=== PATIENT | male | born 1980 | race Caucasian/White ===

== ENCOUNTER 2018-02-22 14:52 | Emergency (ER) | payer BC ==
[2018-02-22] MEDS ORDERED: Sodium Chloride 0.9% 1,000 ML IV STA (15:16)
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
[2018-02-22 15:46] LABS: BASO # 0.1 K/uL (0.0-0.2); BASO % 0.9 % (0.0-2.0); EOS # 0.1 K/uL (0.0-0.7); EOS % 0.7 % (0.0-4.0); HEMOGLOBIN 17.7 g/dL (12.0-18.0); LYMPH # 2.6 K/uL (1.0-4.3); LYMPH % 25.1 % (20.0-40.0); MEAN CELL VOLUME 90.7 fl (80.0-94.0); MEAN CORPUSCULAR HEMOGLOBIN 29.7 pg (27.0-31.0); MEAN CORPUSCULAR HGB CONC 32.8 g/dL (33.0-37.0); MEAN PLATELET VOLUME 9.2 fl (7.2-11.7); MONO # 0.8 K/uL (0.0-0.8); MONO % 7.6 % (0.0-10.0); NEUT # 6.8 K/uL (1.8-7.0); NEUT % 65.7 % (50.0-75.0); RBC 5.95 Mil/uL (4.40-5.90); RED CELL DISTRIBUTION WIDTH 13.7 % (11.5-14.5); WHITE BLOOD COUNT 10.4 K/uL (4.8-10.8)
[2018-02-22 15:57] LABS: PROTHROMBIN TIME 11.2 Seconds (9.8-13.1)
[2018-02-22 15:59] LABS: PARTIAL THROMBOPLASTIN TIME 30.3 Seconds (25.6-37.1)
[2018-02-22 16:09] LABS: ALB/GLOB RATIO 1.3 (1.0-2.1); ALBUMIN 4.7 g/dL (3.5-5.0); ALT/SGPT 58 U/L (21-72); AST/SGOT 54 U/L (17-59); BLOOD UREA NITROGEN 19 mg/dl (9-20); CALCIUM 10.1 mg/dL (8.4-10.2); GFR NON-AFRICAN AMERICAN > 60
[2018-02-22 17:16] LABS: URINE BILIRUBIN NEGATIVE (NEGATIVE); URINE BLOOD MODERATE (NEGATIVE); URINE CLARITY CLEAR (Clear); URINE COLOR YELLOW (YELLOW); URINE GLUCOSE (UA) NEG (Normal); URINE LEUKOCYTE ESTERASE NEG Leu/uL (Negative); URINE PROTEIN 100 mg/dL (NEGATIVE); URINE UROBILINOGEN 0.2-1.0 mg/dL (0.2-1.0)
--- NOTE | 2018-02-22 17:17 | CT ---
Date of service: 02/22/2018 PROCEDURE: CT of the left shoulder without contrast HISTORY: Shoulder pain, s/p seizure COMPARISON: Comparison is made with the previous same-day x-ray of the left shoulder TECHNIQUE: Axial and reformatted coronal and sagittal CT images of the left shoulder were obtained without IV contrast administration. FINDINGS: There is mild posterior dislocation of the left humeral head relative to the glenoid fossa noted. There is wedge shaped defect in the left humeral head likely rep fracture secondary to dislocation. There is adjacent small bony fragment likely also represent acute or subacute fractures and located in between humeral head and the glenoid fossa. The rest of the osseous structures are grossly unremarkable. No definite evidence of significant fracture or defect in the glenoid fossa. Trace left shoulder joint effusion noted. The visualized portion of the left lung is unremarkable. IMPRESSION: Mild posterior dislocation of the left humerus head relative to the glenoid fossa. Wedge shaped defect in left humeral head likely represent fracture deformity secondary to acute and recurrent posterior dislocation associated with adjacent bony fragments.
[2018-02-22] MEDS ORDERED: Midazolam 2 MG/2 ML VIAL IV STA (17:56)
[2018-02-22] MEDS ORDERED: Midazolam 2 MG/2 ML VIAL ONE (18:00)
--- NOTE | 2018-02-22 18:24 | RAD ---
Date of service: 02/22/2018 PROCEDURE: CHEST RADIOGRAPH, 1 VIEW HISTORY: CP COMPARISON: None available. FINDINGS: LUNGS: Clear. PLEURA: No pneumothorax or pleural fluid seen. CARDIOVASCULAR: Normal. OSSEOUS STRUCTURES: No significant abnormalities. VISUALIZED UPPER ABDOMEN: Normal. OTHER FINDINGS: None. IMPRESSION: No active disease.
--- NOTE | 2018-02-22 18:25 | RAD ---
Date of service: 02/22/2018 PROCEDURE: Radiographs of the Left Shoulder HISTORY: Pain COMPARISON: No prior. FINDINGS: BONES: Normal. No fracture. JOINTS: Normal. Glenohumeral and acromioclavicular joints preserved. No osteoarthritis. SOFT TISSUES: Normal. OTHER FINDINGS: None. IMPRESSION: Suboptimal study. No evidence of acute fracture or dislocation.
[2018-02-22] MEDS ORDERED: Propofol 10 mg/ml Inj (20 ML) ONE (18:36)
[2018-02-22] MEDS ORDERED: Propofol 10 mg/ml Inj (20 ML) IV STA (19:11)
[2018-02-22 21:56] VITALS: BP 138/82; PULSE 94; RESP 18; TEMP 99.6
[2018-02-22 22:01] VITALS: O2SAT 98
--- NOTE | 2018-02-22 23:05 | CARD ---
APPROVED REPORT Date of service: 02/22/2018 EKG Measurement Heart [id number] <Conclusion> Sinus tachycardia Otherwise normal ECG
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
--- NOTE | 2018-02-23 03:07 | OP ---
PROCEDURE DATE: 02/22/2018 PREOPERATIVE DIAGNOSIS: Left shoulder posterior fracture dislocation. POSTOPERATIVE DIAGNOSIS: Left shoulder posterior fracture dislocation. PROCEDURES: 1. Left shoulder close reduction under conscious sedation. 2. Sling. Placement of shoulder immobilizer. ANESTHESIA TYPE: Conscious sedation. ESTIMATED BLOOD LOSS: None. COMPLICATIONS: None. HISTORY: The patient is a 38-year-old male with recurrent left shoulder posterior dislocation. The patient had a seizure, presents to the emergency room with x-rays and CT scan showing a recurrent posterior dislocation. I explained to the patient he will require conscious sedation and closed reduction. I reviewed the risks and benefit including nerve damage, continued stability, recurrent dislocation. The patient agreed and proceeded. PROCEDURE: The patient was given propofol sedation while patient lying flat with traction and counter traction. The gentle traction was applied and the patient shoulder was reduced and an audible clunk was recognized as the shoulder reduced. The patient was placed in a shoulder immobilizer. He was neurovascular intact after the procedure. The patient instructed to remain in a sling, remain nonweightbearing and follow up in the office. Pa Ramos MD [facility]
--- NOTE | 2018-02-23 11:00 | CT ---
Date of service: 02/22/2018 PROCEDURE: LEFT SHOULDER CT WITHOUT CONTRAST HISTORY: Post-reduction COMPARISON: Left shoulder CT without contrast 02/22/2018 4:38 p.m.. TECHNIQUE: A volumetric CT acquisition was repeated through the left shoulder without intravenous contrast postreduction, as requested. Contrast Dose: None Radiation dose:Total exam DLP = 379.27 mGy-cm. This CT exam was performed using one or more of the following dose reduction techniques: Automated exposure control, adjustment of the mA and/or kV according to patient size, and/or use of iterative reconstruction technique. FINDINGS: The left humeral head appears adequately reduced in its articulation with the glenoid process of the left scapula. However, there is a large impaction deformity at the medial margins of the left humeral head. Minimal fracture fragments are seen distracted medially from the left humeral head. The visualized proximal diaphysis and diaphysis of the left humerus are intact and unremarkable with only a potential tiny chip or avulsion fracture seen related to the inferior margins of the glenoid process. Mild degenerative changes seen related to the acromioclavicular joint including inferior osteophytes and degenerative cyst at the distal clavicle. Upper left thoracic ribs appear intact without fracture or destructive bony lesion and local soft tissues appear unremarkable. IMPRESSION: Adequate reduction at the glenohumeral joint left shoulder with large impacted fracture at the left humeral head associated with a few tiny free fragments. Questionable tiny chip or avulsion fracture inferior margins left glenoid process. Degenerative changes are noted at the acromioclavicular joint once again. Concordant preliminary report from [employer] [facility], 02/22/2018.
== END 2018-02-22 21:57 | disposition home or self-care (01) ==
LOC: H.ER 14:52
DX: G40.909 Epilepsy, unspecified, not intractable, without status epilepticus (principal); S43.005A Unspecified dislocation of left shoulder joint, initial encounter; W19.XXXA Unspecified fall, initial encounter; Y92.89 Other specified places as the place of occurrence of the external cause; I10 Essential (primary) hypertension; Z88.0 Allergy status to penicillin
CPT/HCPCS: 23655; 71045; 73030; 73200; 80053; 81003; 82948; 85025; 85610; 85730; 93005; 94770; 96361; 96374; 96375; 96376; 99285; J2270; J2405; J2704; J7030